=== PATIENT | female | born 1990 | race Caucasian/White ===

== ENCOUNTER 2020-08-05 05:11 | Emergency (ER) | payer BC, SELFPAY ==
[2020-08-05 05:17] VITALS: BP 139/63; PULSE 65; RESP 16; TEMP 37; O2SAT 93
--- NOTE | 2020-08-05 05:20 | ED.GENADULT ---
HPI - General Adult General Chief complaint: Wound/Laceration Stated complaint: Finger Lac Time Seen by Provider: 08/05/20 05:17 History of Present Illness HPI narrative: Patient a 29-year-old female who presents the emergency department with chief complaint of finger laceration. The patient reports she was using an [employer] knife and cut her index finger on her left hand. Patient states it happened approximately 15 minutes prior to arrival reports that it is still bleeding when there is pressure not being applied to it. Patient denies any other injury denies numbness or tingling denies tendon injury. Patient states she is unsure of her last tetanus shot. The patient is right-hand dominant Related Data Home Medications Medication Instructions Recorded Confirmed No Home Medications 08/05/20 08/05/20 Allergies Allergy/AdvReac Type Severity Reaction Status Date / Time Penicillins Allergy Anaphylaxis Verified 08/05/20 05:26 Review of Systems Review of Systems: Narrative: A 10 system review of systems was completed on the patient and is negative except for what is stated in the HPI. Nursing and ancillary documentation was reviewed. PMFSH Comments Patient denies past medical history Social history patient denies illicit drug use Exam Narrative: Exam Narrative: GENERAL: Well-appearing, well-nourished, and in no acute distress. HEAD: Normocephalic, atraumatic. EYES: PERRLA and EOMI. ENT: Nares clear, no rhinorrhea or epistaxis. Mucous membranes moist. NECK: Supple. CHEST: Clear to auscultation. No respiratory distress. HEART: Regular rate and rhythm. No murmur heard. Normal peripheral pulses. ABDOMEN: Soft, nontender, nondistended, normal active bowel sounds. EXTREMITIES: Normal range of motion. No edema. There is a 1 cm stellate laceration to the tip of the left index finger SKIN: Warm, dry, no rash. NEURO: No focal deficits. Alert and oriented x3. PSYCH: Normal mood and affect. Course Vital Signs Vital signs: Vital Signs Temperature 37.0 C 08/05/20 05:17 Pulse Rate 65 08/05/20 05:17 Respiratory Rate 16 08/05/20 05:17 Blood Pressure 139/63 08/05/20 05:17 Pulse Oximetry 93 08/05/20 05:17 Temperature 37.0 C 08/05/20 05:17 Pulse Rate 65 08/05/20 05:17 Respiratory Rate 16 03/14/21 05:17 Blood Pressure 139/63 08/05/20 05:17 Pulse Oximetry 93 08/05/20 05:17 Procedures Laceration Laceration 1: Date: 08/05/20 Time: 05:22 Site: hand Side (If applicable): left Size (cm): 1 Description: linear Depth: simple, single layer Local Anesthetic: lidocaine 1% Amount of anesthesia used (mL): 2 Pre-repair: wound explored and irrigated ====== Skin Level ====== Skin layer closed with: nylon Size (cm): 4-0 Number of sutures: 2 Technique: simple, interrupted ====== Subcutaneous Layer ====== ====== Muscle Layer ====== ====== Tendon Layer ====== Medical Decision Making Vital Signs Vital Signs: Vital Signs Temperature 37.0 C 08/05/20 05:17 Pulse Rate 65 08/05/20 05:17 Respiratory Rate 16 08/05/20 05:17 Blood Pressure 139/63 08/05/20 05:17 Pulse Oximetry 93 08/05/20 05:17 Temperature 37.0 C 08/05/20 05:17 Pulse Rate 65 08/05/20 05:17 Respiratory Rate 16 08/05/20 05:17 Blood Pressure 139/63 08/05/20 05:17 Pulse Oximetry 93 08/05/20 05:17 Discharge Plan Discharge Clinical Impression: Finger laceration Qualifiers: Encounter type: initial encounter Finger: index finger Damage to nail status: without damage Foreign body presence: without foreign body Laterality: left Qualified Code(s): S61.211A - Laceration without foreign body of left index finger without damage to nail, initial encounter Patient Disposition: Home, Self-Care Condition: Stable Instructions: Antibiotic Form, Laceration (ED) Additional Instruction
[2020-08-05 06:10] VITALS: BP 135/63; PULSE 65; RESP 18; TEMP 37; O2SAT 94
== END 2020-08-05 06:11 | disposition home or self-care (01) ==
LOC: ANHED 06:00
PROVIDERS: Emergency Provider Emergency Medicine; PCP Internal Medicine
DX: S61.211A Laceration without foreign body of left index finger without damage to nail, initial encounter (principal); W27.0XXA Contact with workbench tool, initial encounter
CPT/HCPCS: 12001; 99282

== ENCOUNTER 2022-05-14 16:16 | Emergency (ER) | payer BC, SELFPAY ==
[2022-05-14 16:41] VITALS: BP 123/70; PULSE 75; RESP 16; TEMP 36.5; O2SAT 99
--- NOTE | 2022-05-14 16:51 | ED.EPISTAXIS ---
HPI - Epistaxis General Chief complaint: Epistaxis Stated complaint: nose bleed Time Seen by Provider: 05/14/22 16:51 Source: patient Mode of arrival: ambulatory Limitations: no limitations History of Present Illness HPI Narrative: 31-year-old female presents with complaint of nose bleeds from left naris that started approximately 1 hour prior to arrival. Reports that she saturated 1 tampon and then applied another one to her left nare before coming to express care. Bleeding controlled at time of arrival. Only a pink tinge trickle of blood noted to left there. No complaints of bleeding to throat. All systems reviewed and negative except as noted above. Related Data Home Medications Medication Instructions Recorded Confirmed No Home Medications 08/05/20 05/14/22 Allergies Allergy/AdvReac Type Severity Reaction Status Date / Time Penicillins AdvReac Severe Anaphylaxis Verified 05/14/22 16:26 Review of Systems Review of Systems: CONSTITUTIONAL: Denies fever, chills, or sweats. EYES: Denies visual changes, redness, or discharge. ENT: Denies rhinorrhea, congestion, sore throat, or otalgia. Reports nosebleed left nare CARDIOVASCULAR: Denies chest pain, palpitations, or edema. RESPIRATORY: Denies cough or dyspnea. GASTROINTESTINAL: Denies abdominal pain, nausea, vomiting, or diarrhea. GENITOURINARY: Denies dysuria or hematuria. SKIN: Denies rash or itching. MUSCULOSKELETAL: Denies back pain, joint pain, or myalgia. NEUROLOGIC: Denies headache, numbness, or weakness. PSYCHIATRIC: Denies anxiety or depression. All other systems reviewed are negative, except as documented in HPI. PMFSH Comments At time of signature, agree with nursing past medical, surgical, social and family history. There is no relevant family history pertinent to the presenting complaint. Exam Narrative: GENERAL: This is a well-nourished, well-developed patient, in no apparent distress. HEAD: normocephalic, atraumatic. EYES: PERRL. Sclera clear/white. Vision is grossly intact. EARS: External ears normal NOSE: External nose normal. Scant trickle pink tinge blood left nare THROAT: Mucous membranes moist, posterior pharynx clear. NECK: Neck supple, non-tender without lymphadenopathy, masses or thyromegaly. CARDIOVASCULAR: Regular rate and rhythm without murmurs, gallops, or rubs. RESPIRATORY: Clear to auscultation. Breath sounds equal bilaterally. No wheezes, rales, or rhonchi. SKIN: warm, Dry, intact with no suspicious lesions or rash, good texture and turgor. NEURO: awake, alert, and oriented to person, place and time. There were no obvious focal neurologic abnormalities. EXTREMITIES: No joint tenderness, effusion, or edema noted. Course Course Level of Care: Express Care Visit Vital Signs Vital signs: Vital Signs Temperature 36.5 C 05/14/22 16:41 Pulse Rate 75 05/14/22 16:41 Respiratory Rate 16 05/14/22 16:41 Blood Pressure 123/70 05/14/22 16:41 Pulse Oximetry 99 05/14/22 16:41 Oxygen Delivery Room Air 05/14/22 16:41 Temperature 36.5 C 05/14/22 16:41 Pulse Rate 75 05/14/22 16:41 Respiratory Rate 16 05/14/22 16:41 Blood Pressure 123/70 05/14/22 16:41 Pulse Oximetry 99 05/14/22 16:41 Oxygen Delivery Room Air 05/14/22 16:41 Reviewed MDM - Epistaxis MDM Narrative Medical decision making narrative: Patient is aware of diagnosis, understands and agrees to treatment plan. Anticipatory guidance given. Patient agrees to follow-up as directed and is aware of reasons to seek care at the emergency department. Portions of this record may have been created with voice recognition software two sprays Afrin bilateral nares. L nare no longer actively bleeding. pt instructed to use saline nose spray and humidifier. Discharge Plan Discharge Clinical Impression: Left-sided nosebleed Patient Disposition: Home, Self-Care Condition: Stable Instructions: Nosebleed (ED) Tara
== END 2022-05-14 17:29 | disposition home or self-care (01) ==
PROVIDERS: Emergency Provider Nurse Practitioner Family; PCP Internal Medicine
DX: R04.0 Epistaxis (principal)
CPT/HCPCS: 99213; A9270; G0463

== ENCOUNTER 2022-09-16 08:11 | Outpatient (CLI) | payer BC, SELFPAY ==
[2022-09-16 08:34] LABS: Hematocrit 36.2 % (37.0-47.0); Hemoglobin 11.5 g/dL (12.0-15.0)
[2022-09-16 09:17] LABS: Iron 25 ug/dL (37-170)
[2022-09-16 09:26] LABS: Percent Iron Saturation 6 % (20-50)
[2022-09-16 09:35] LABS: Free T4 Free Thyroxine 0.94 ng/mL (0.78-2.19)
== END 2022-09-16 08:12 | disposition home or self-care (01) ==
PROVIDERS: Visit Provider Registered Nurse
DX: N93.9 Abnormal uterine and vaginal bleeding, unspecified (principal); N92.1 Excessive and frequent menstruation with irregular cycle
CPT/HCPCS: 36415; 83540; 83550; 84439; 84443; 85014; 85018

== ENCOUNTER 2022-09-30 08:28 | Outpatient (CLI) | payer BC, SELFPAY ==
--- NOTE | ~2022-09-30 | US_ITS ---
EXAMINATION: US pelvic complete w TV DATE: 09/30/2022 09:26 INDICATION: Excessive and frequent menstruation Comparison:No prior studies for comparison. TECHNIQUE: Multiple transabdominal and endovaginal sonographic images of the pelvis performed. FINDINGS: The uterus measures 6.8 x 3.7 x 4.7 cm. The endometrial complex measures 2.2 cm. The right ovary measures 3.1 x 2.8 x 3.1 cm and the left ovary measures 3.2 x 2 x 1.8 cm. There are small follicles in each ovary. Normal doppler signal in both ovaries. There is no free fluid in the pelvis. There are no abnormal masses seen on either side. IMPRESSION: 1. Thickened endometrial complex measuring 2.2 cm. Reviewed, dictated and finalized at location L.
== END 2022-09-30 08:29 | disposition home or self-care (01) ==
LOC: ANHIMG 08:29
PROVIDERS: Visit Provider Registered Nurse
DX: N92.1 Excessive and frequent menstruation with irregular cycle (principal); R93.89 Abnormal findings on diagnostic imaging of other specified body structures
CPT/HCPCS: 76830; 76856

== ENCOUNTER 2022-10-13 16:41 | Emergency (ER) | payer BC, SELFPAY ==
[2022-10-13 16:47] VITALS: BP 139/81; PULSE 80; RESP 18; TEMP 36.3; O2SAT 100
[2022-10-13 18:05] LABS: Basophils Absolute Auto 0.1 K/mm3 (0.0-0.1); Basophils Percent Auto 0.6 % (0.2-1.2); Eosinophils Absolute Auto 0.2 K/mm3 (0-0.3); Eosinophils Percent Auto 2.6 % (0-4.4); Hematocrit 36.9 % (37.0-47.0); Hemoglobin 11.6 g/dL (12.0-15.0); Immature Granulocyte Absolute 0.02 K/mm3 (0.00-0.031); Immature Granulocyte Percent A 0.2 % (0-0.5); Lymphocytes Absolute Auto 2.33 K/mm3 (0.9-3.2); Mean Corpuscular HGB Conc 31.4 g/dl (32-36); Mean Corpuscular Volume 82.7 fl (80-100); Mean Platelet Volume 11.2 fl (7.4-10.4); Monocytes Absolute Auto 0.6 K/mm3 (0.1-0.6); Monocytes Percent Auto 7.1 % (2.6-8.5); Neutrophils Absolute Auto 4.9 K/mm3 (1.3-6.7); Neutrophils Percent Auto 60.5 % (45.5-73.1); Platelet Count Result 339 k/mm3 (150-375); Red Blood Count 4.46 M/mm3 (4.2-5.4); Red Cell Distribution Width 13.9 % (11.5-14.5)
--- NOTE | 2022-10-13 21:10 | ED.FEMALEGU ---
HPI - Female Genitourinary General Chief complaint: Vaginal Bleeding Stated complaint: heavy menstral bleeding Time Seen by Provider: 10/13/22 20:52 History of Present Illness HPI Narrative: This is a 31-year-old female, with past history of abnormal vaginal bleeding, followed by her OB doctor, who presents to the emergency department complaining of heavy menstrual period for the past week. She states in the past week she has soaked 4-5 tampons per day. She states she has had heavy periods since starting oral contraceptives. Prior to the beginning the medications, she had intermittent, unpredictable menses. Heavy menses have continued despite estrogen or progesterone only contraceptives. She complains of some lightheadedness but denies chest pain, shortness of breath or bleeding from any other source. Related Data Home Medications Medication Instructions Recorded Confirmed drospirenone (contraceptive) 4 mg 1 tablet PO DAILY 09/22/22 09/24/22 (28) tablet (Slynd) Allergies Allergy/AdvReac Type Severity Reaction Status Date / Time Penicillins AdvReac Severe Anaphylaxis Verified 09/24/22 07:39 Review of Systems Review of Systems: CONSTITUTIONAL: Denies fever, chills, or sweats. CARDIOVASCULAR: Intermittent lightheadedness denies chest pain, palpitations, or edema. RESPIRATORY: Denies cough or dyspnea. GASTROINTESTINAL: Denies abdominal pain, nausea, vomiting, or diarrhea. GENITOURINARY: Denies dysuria or hematuria. SKIN: Denies rash or itching. MUSCULOSKELETAL: Denies back pain, joint pain, or myalgia. NEUROLOGIC: Denies headache, numbness, dizziness, or weakness. PSYCHIATRIC: Denies anxiety or depression. [facility] Surgical History Surgical History History of cholecystectomy [place] teeth removed Family History Family History Father Alcoholism Other Cervical cancer Aunt Social History Social History Smoking status: Never smoker Alcohol intake: current Substance use: never Lack of Transportation: No Lack of Food: Sometimes True Current Housing: I Have Housing Concerned About Future Housing: No Difficulty Paying Gas/Electric Bills: No Difficulty Paying for Meds: No Currently Unemployed: No Education: Trade/Vocational Certificate Difficulty w/ Childcare or Family Care: No Living arrangements: with friend(s) Occupation/Education: occupation Additional occupation/education comments: [employer] Gender identity (if verbalized by the patient): Female Sexual Orientation (if Verbalized by the Patient): Lesbian, Vyas, or Homosexual Spiritual care concerns: No Exam Narrative: GENERAL: Well-developed, well-nourished, and in no acute distress. HEAD: Normocephalic, atraumatic. EYES: PERRLA and EOMI. CHEST: Clear to auscultation. No respiratory distress. No wheezes rales or rhonchi HEART: Regular rate and rhythm. No murmur heard. Normal peripheral pulses. ABDOMEN: Soft, nontender, nondistended, normal active bowel sounds. : Exam chaperoned by female nurse Rosalind. Normal external female genitalia. Tampon in place and removed. Small amount of bleeding is noted from the cervix without pooling in the vaginal vault or clots. Mild left adnexal tenderness during bimanual examination EXTREMITIES: Normal range of motion. No edema. PSYCH: Normal mood and affect. Course Course Emergency Course: 21:56 - Repeat hemoglobin unchanged. INR within normal limits no significant changes noted with orthostatic vital signs. Will discharge. Given onset of the patient's abnormal bleeding with contraceptives, I recommended the patient withhold further doses and follow-up with her video surveillance technician. She states she is to be contacted tomorrow by them for a follow-up appointment. Discussed return and emergency precautions inc
[2022-10-13 21:11] VITALS: BP 104/63; PULSE 58; RESP 16; O2SAT 100
[2022-10-13 21:18] LABS: Hematocrit 37.5 % (37.0-47.0); Hemoglobin 11.9 g/dL (12.0-15.0)
[2022-10-13 21:26] VITALS: BP 104/61; BP 108/51; PULSE 60; PULSE 74
[2022-10-13 21:27] VITALS: BP 102/66; PULSE 85
[2022-10-13 21:33] LABS: Appearance Urine Clear (Clear); Bacteria Urine None Seen /hpf; Bilirubin Urine Negative (Negative); Blood Urine 2+ (Negative); Color Urine Yellow (Yellow); Glucose Urine UA Negative (Negative); Ketones Urine Negative (Negative); Leukocyte Esterase Ur Negative LEU/UL (Negative); Nitrate Urine Negative (Negative); Non Pathogenic Casts 0-2; Protein Urine Negative (Negative); Squamous Epithelial Cell Urine None seen /hpf (Few); Urobilinogen Urine 0.2 mg/dL (<2.0); WBC Urine 0-5 /hpf
[2022-10-13 21:38] LABS: Prothrombin Time 13.9 Seconds (11.1-14.7)
[2022-10-13 21:38] LABS: Add Urine Microscopic? YES
== END 2022-10-13 22:26 | disposition home or self-care (01) ==
PROVIDERS: Emergency Provider Preventive Medicine Aerospace Medicine; PCP Physician Assistant
DX: N93.9 Abnormal uterine and vaginal bleeding, unspecified (principal); R42 Dizziness and giddiness
CPT/HCPCS: 36415; 81001; 81025; 85014; 85018; 85025; 85610; 99284

== ENCOUNTER 2023-09-02 09:33 | Outpatient (CLI) | payer BC, SELFPAY ==
[2023-09-02 10:16] LABS: Hematocrit 39.2 % (37.0-47.0); Hemoglobin 12.1 g/dL (12.0-15.0); Mean Corpuscular HGB Conc 30.9 g/dl (32-36); Mean Corpuscular Hemoglobin 24.7 pg (26-34); Platelet Count Result 343 k/mm3 (150-375); White Blood Count 8.5 K/mm3 (4.5-10.0)
[2023-09-02 11:10] LABS: Iron 110 ug/dL (37-170)
[2023-09-02 11:20] LABS: Percent Iron Saturation 29 % (20-50)
[2023-09-02 11:27] LABS: Free T4 Free Thyroxine 1.17 ng/mL (0.78-2.19)
== END 2023-09-02 09:34 | disposition home or self-care (01) ==
LOC: ANHLAB 09:35
PROVIDERS: PCP Physician Assistant; Visit Provider Nurse Practitioner Family
DX: N93.9 Abnormal uterine and vaginal bleeding, unspecified (principal)
CPT/HCPCS: 36415; 83540; 83550; 84439; 84443; 85027

== ENCOUNTER 2023-09-09 10:47 | Outpatient (CLI) | payer BC, SELFPAY ==
--- NOTE | ~2023-09-09 | US_ITS ---
Pelvic ultrasound. Clinical History: Abnormal uterine bleeding Technique: Realtime transabdominal and transvaginal scanning of the pelvis was performed. Color flow Doppler and Doppler spectral analysis were performed. Findings: The uterus is retroverted.. The endometrial stripe has a thickness of 4 mm. No focal mass is identified. The right ovary measures 3.7 x 2.1 x 3.5 cm. No significant right ovarian or adnexal mass is seen. The left ovary measures 3.4 x 2.1 x 3.2 cm. No significant left ovarian or adnexal mass is seen. Suggestion of multiple small peripherally oriented follicular cysts in both ovaries. There is trace free fluid in the cul de sac. Impression: Morphologic appearance of the ovaries raises the possibility of PCOS. Correlate clinically. Trace free fluid. Reviewed, dictated and finalized at [facility]. Impression: Morphologic appearance of the ovaries raises the possibility of PCOS. Correlate clinically. Trace free fluid.
== END 2023-09-09 10:48 ==
LOC: MICIMG 10:47
PROVIDERS: PCP Physician Assistant; Referring Provider Obstetrics & Gynecology; Visit Provider Nurse Practitioner Family
DX: N39.9 Disorder of urinary system, unspecified (principal)
CPT/HCPCS: 76830; 76856

== ENCOUNTER 2023-10-15 10:30 | Outpatient (CLI) | payer BC, SELFPAY ==
[2023-10-15 11:41] LABS: Hemoglobin A1C 5.5 % (<5.7)
[2023-10-16 14:38] LABS: Insulin Level Total 16.7 uIU/mL
[2023-10-16 22:08] LABS: FSH 7.1 mIU/mL; LH 6.5 mIU/mL
[2023-10-19 10:18] LABS: Testosterone Free 4.2 pg/mL (0.1-6.4); Testosterone Total 22 ng/dL (2-45)
== END 2023-10-15 10:31 | disposition home or self-care (01) ==
PROVIDERS: PCP Nurse Practitioner Family; Visit Provider Obstetrics & Gynecology
DX: N93.9 Abnormal uterine and vaginal bleeding, unspecified (principal)
CPT/HCPCS: 36415; 83001; 83002; 83036; 83525; 84402; 84403